=== PATIENT | male | born 1965 | race American Indian/Alaskan Native ===

== ENCOUNTER 2017-04-10 16:02 | Emergency (ER) | payer BC ==
[2017-04-10 16:09] VITALS: BP 167/83; PULSE 61; TEMP 96.5; BMI 27.4
[2017-04-10] MEDS ORDERED: BACITRACIN 15 GM TUBE TOPICAL OINTMENT TP ONE (17:06)
[2017-04-10] MEDS ORDERED: DIPHTH,PERTUSS(ACELL),TET 0.5 ML DISP.SYRIN IM ONE (17:06)
[2017-04-10] MEDS ORDERED: SILVER SULFADIAZINE 1% TOP CREAM 50 GM JAR TP ONE ×2 (17:06→17:11)
--- NOTE | 2017-04-10 17:11 | PDOC ---
History of Present Illness - General Chief Complaint: Burn Stated Complaint: BURN Time Seen by Provider: 04/10/17 17:01 History Source: Patient Exam Limitations: No Limitations - History of Present Illness Initial Comments: 04/10/17 17:07 Patient is a 51-year-old male with history of hypertension does not take medication as prescribed presents emergency Department with first-degree burn to dorsum of right hand. Patient reports wearing gloves and however leaked into the glove while he was working with a strainer. Area is erythematous, there is one small 1 cm blister to base of second finger. Good range of motion to hand, tetanus not up-to-date. Denies any other exposure injury. Allergies: No known allergies Medications: None Family History: Non-contributory Social History: Denies smoking, alcohol use, or IVDU Review of Systems GENERAL/CONSTITUTIONAL: No fever or chills. No weakness. No weight change. HEAD, EYES, EARS, NOSE AND THROAT: No change in vision. No ear pain or discharge. No sore throat. CARDIOVASCULAR: No chest pain or shortness of breath. RESPIRATORY: No cough, wheezing, or hemoptysis. GASTROINTESTINAL: No nausea, vomiting, diarrhea or constipation. No rectal bleeding. GENITOURINARY: No dysuria, frequency, or change in urination. MUSCULOSKELETAL: No joint or muscle swelling or pain. No neck or back pain. SKIN : No rash or easy bruising. Erythema to the dorsum of the right hand. One small blister at the base of the right first finger Physical Exam: GENERAL: The patient is awake, alert, and fully oriented, in no acute distress. HEAD: Normal with no signs of trauma. EYES: Pupils equal, round and reactive to light, extraocular movements intact, sclera anicteric, conjunctiva clear. ENT: Ears normal, nares patent, oropharynx clear without exudates. Moist mucous membranes. No uvula deviation NECK: Normal range of motion, supple without lymphadenopathy, JVD, or masses. LUNGS: Breath sounds equal, clear to auscultation bilaterally. No wheezes, and no crackles. HEART: Regular rate and rhythm, normal S1 and S2 without murmur, rub or gallop. ABDOMEN: Soft, nontender, normoactive bowel sounds. No guarding, no rebound. No masses. No bruising or abrasions MUSCULOSKELETAL: Normal range of motion, no edema. No clubbing or cyanosis. No cords, erythema, or tenderness. No CVA Tenderness with fist. NEUROLOGICAL: Cranial nerves II through XII grossly intact. No numbness or tingling to hand. SKIN: Erythema to the dorsum of the right hand measuring approximately 6 cm in width and 8 cm in length from the base of the first finger to the fourth finger. There is one small 1 cm blister, at the base of right second finger. Past History - Past Medical History Allergies/Adverse Reactions: Allergies Allergy/AdvReac Type Severity Reaction Status Date / Time No Known Allergies Allergy Verified 04/10/17 16:06 Home Medications: Ambulatory Orders NK [No Known Home Medication] 04/10/17 Thyroid Disease: No - Suicide/Smoking/Psychosocial Hx Smoking History: Never smoked Have you smoked in the past 12 months: No Information on smoking cessation initiated: No Hx Alcohol Use: No Drug/Substance Use Hx: No Substance Use Type: None *Physical Exam - Vital Signs Last Vital Signs Temp Pulse Resp BP Pulse Ox 96.5 F L 61 18 167/83 100 04/10/17 16:06 04/10/17 16:06 04/10/17 16:06 04/10/17 16:06 04/10/17 16:06 Medical Decision Making - Medical Decision Making 04/10/17 17:11 A/P: Patient here for evaluation of first-degree burn to dorsum of right hand, there is no open area 1 small blister that is still intact area measures approximately 1% not reportable according to [facility] regulations. Boostrix given because tetanus is not up to date, bacitracin nonstick dressing applied to hand, proper care instructions given to patient explained to patient that once area opens on open to area apply Silvadene and nonstick dressing. Follow-up with plastics as needed. Monitor area for any increased redness swelling or signs of infection may take Motrin [id number] as needed for pain. *DC/Admit/Observation/Transfer Diagnosis at time of Disposition: Burn - Discharge Dispostion Disposition: HOME Condition at time of disposition: Good Admit: No - Referrals Referrals: Cassius Avalos MD [Staff Physician] - - Patient Instructions Printed Discharge Instructions: DI for Conti, How to Take Care of a Burn Additional Instructions: Please monitor area for any type and areas once area happens apply Silvadene only to the open area and nonstick dressing. Apply bacitracin to known open reddened areas with nonstick dressing If any increased redness, swelling, signs of infection return to emergency department Motrin for pain - Post Discharge Activity Forms/Work/School Notes: Back to Work
== END 2017-04-10 17:29 | disposition home or self-care (01) ==
LOC: JERFT 16:02
PROC: 2W2EX4Z Dressing of Right Hand using Bandage (ICD-10-PCS; principal; 2017-04-10)
PROC: 3E0234Z Introduction of Serum, Toxoid and Vaccine into Muscle, Percutaneous Approach (ICD-10-PCS; 2017-04-10)
DX: T23.161A Burn of first degree of back of right hand, initial encounter (principal); T31.0 Burns involving less than 10% of body surface; X11.8XXA Contact with other hot tap-water, initial encounter; Y93.89 Activity, other specified; Y92.63 Factory as the place of occurrence of the external cause; Y99.0 Civilian activity done for income or pay
CPT/HCPCS: 90715; 99281-25